=== PATIENT | male | born 2000 | race Caucasian/White ===

== ENCOUNTER 2021-08-04 20:26 | Emergency (ER) | payer OTHER ==
[~2021-08-04] VITALS: Ht 180.3 cm; Wt 75.0 kg
[2021-08-04 20:30] VITALS: BP 102/68; TEMP 98.7
[2021-08-04 21:02] VITALS: PULSE 87
== END 2021-08-04 22:02 | disposition home or self-care (01) ==
LOC: COL.ER 20:26
DX: S80.852A Superficial foreign body, left lower leg, initial encounter (principal); F17.210 Nicotine dependence, cigarettes, uncomplicated; W45.8XXA Other foreign body or object entering through skin, initial encounter